=== PATIENT | male | born 1945 | race Caucasian/White ===

== ENCOUNTER 2024-06-30 21:52 | Inpatient (IN) | payer OTHER ==
[~2024-06-30] VITALS: Ht 182.9 cm; Wt 81.6 kg
[2024-06-30 21:55] VITALS: BP_SYST 117; PULSE 87; RESP 18; TEMP 98.2; O2SAT 98
[2024-06-30] MEDS: cefTRIAXone 1 GM IVPB PREMIX 50 ML IV ONE (22:43)
[2024-06-30 23:33] LABS: ALANINE AMINOTRANSFERASE 19 U/L (12-78); ALBUMIN 2.7 g/dL (3.4-4.8); ANION GAP 10 (5-15); ASPARTATE AMINOTRANSFERASE 19 U/L (10-37); CALCIUM 8.8 mg/dL (8.4-11.0); CARBON DIOXIDE 26 mmol/L (23-29); CHLORIDE 98 mmol/L (98-107); CREATININE 1.39 mg/dL (0.55-1.30); GLUCOSE 105 mg/dL (74-106); POTASSIUM 4.2 mmol/L (3.5-5.1); SODIUM SERUM 134 mmol/L (136-145); TOTAL BILIRUBIN 1.1 mg/dL (0.0-1.0); TOTAL PROTEIN, SERUM 6.2 g/dL (6.4-8.3); UREA NITROGEN, BLOOD 28 mg/dL (8-21)
[2024-06-30 23:33] LABS: BILIRUBIN,URINE NEGATIVE (NEGATIVE); BLOOD, URINE 1+ (NEGATIVE); COLOR,URINE YELLOW (YELLOW); GLUCOSE,URINE NEGATIVE (NEGATIVE); KETONES,URINE NEGATIVE (NEGATIVE); LEUKOCYTE ESTERASE ,URINE 3+ (NEGATIVE); NITRITE, URINE NEGATIVE (NEGATIVE); PROTEIN URINE NEGATIVE (NEGATIVE); UROBILINOGEN,URINE 0.2 (0.2-1.0)
[2024-06-30 23:35] LABS: BILIRUBIN,DIRECT 0.3 mg/dL (0.0-0.3)
[2024-06-30 23:46] LABS: CLARITY/URINE CLOUDY (CLEAR)
[2024-06-30 23:47] LABS: BACTERIA,URINE MODERATE /HPF (None Seen); WBC,URINE >100 /HPF (0-3)
[2024-06-30 23:55] LABS: INR 1.1 (0.80-1.20); PROTHROMBIN TIME 11.1 SECS (9.5-12.5)
[2024-07-01] VITALS (8 sets, daily range): BP systolic 102–122; PULSE 63–102; RESP 16–20; TEMP 97.3–98.5; O2SAT 93–98
[2024-07-01 00:01] LABS: BASOPHILS # (AUTO) 0.1 K/uL (0.0-0.2); BASOPHILS % (AUTO) 0.9 % (0.0-2.0); EOSINOPHILS # (AUTO) 0.1 K/uL (0.0-0.4); EOSINOPHILS % (AUTO) 0.8 % (0.0-4.0); HEMATOCRIT 32.2 % (36-54); HEMOGLOBIN 11.2 g/dL (14.0-18.0); LYMPHOCYTES # (AUTO) 1.4 K/uL (1.0-5.5); LYMPHOCYTES % (AUTO) 12.9 % (20.5-51.5); MEAN CORPUSCULAR HEMOGLOBIN 33 pg (27-31); MEAN CORPUSCULAR HGB CONC 35 % (32-36); MEAN CORPUSCULAR VOLUME 93 fL (79.0-98.0); MONOCYTES # (AUTO) 1.1 K/uL (0.0-1.0); MONOCYTES % (AUTO) 10.3 % (1.7-9.3); NEUTROPHILS % (AUTO) 75.1 % (40.0-70.0); RED BLOOD CELL COUNT(AUTO) 3.45 MIL/uL (4.2-6.2); RED CELL DISTRIBUTION WIDTH 17.6 % (9.0-15.0); WHITE BLOOD COUNT (AUTO) 10.6 K/uL (4.8-10.8)
[2024-07-01 00:28] LABS: PLATELET COUNT (AUTO) 289 K/uL (130-430)
[2024-07-01] MEDS ORDERED: GABA-531 PO (04:26)
[2024-07-01] MEDS ORDERED: BISA10SU61 RC (04:26)
[2024-07-01] MEDS ORDERED: LIDP (04:31)
[2024-07-01] MEDS ORDERED: OXYC10TA48 PO (04:32)
[2024-07-01] MEDS ORDERED: TAMS-11 PO (04:32)
[2024-07-01] MEDS ORDERED: ACET-2634 PO (04:32)
[2024-07-01] MEDS ORDERED: SENN-153 PO (04:32)
[2024-07-01] MEDS ORDERED: ONDA4TAB11 PO (04:32)
[2024-07-01] MEDS ORDERED: METH500T PO (04:32)
[2024-07-01] MEDS ORDERED: POLY17PO4 PO (04:32)
[2024-07-01] MEDS ORDERED: OXYC5TAB3 PO (04:32)
[2024-07-01] MEDS ORDERED: MOM PO (04:32)
[2024-07-01] MEDS ORDERED: MIDO2.5T PO (04:32)
[2024-07-01] MEDS ORDERED: CIPROFLOXACIN HCL 500 MG TABLET PO SCH (09:00)
[2024-07-01] MEDS: CIPROFLOXACIN HCL 500 MG TABLET PO SCH (09:48)
[2024-07-01] MEDS: methocarbamoL 500 MG TABLET PO SCH (22:33)
[2024-07-01] MEDS: OXYCODONE/ACETAMINOPHEN 5-325 TABLET PO PRN (22:34)
[2024-07-02 00:28] VITALS: BP_SYST 89; PULSE 69; RESP 12; TEMP 96.6; O2SAT 93
[2024-07-02 07:30] VITALS: BP_SYST 91; PULSE 68; RESP 18; TEMP 97.8; O2SAT 97
[2024-07-02 09:45] VITALS: O2SAT 98
[2024-07-02 09:58] LABS: HEMATOCRIT 33.5 % (36-54); HEMOGLOBIN 11.4 g/dL (14.0-18.0); MEAN CORPUSCULAR HEMOGLOBIN 32 pg (27-31); MEAN CORPUSCULAR HGB CONC 34 % (32-36); MEAN CORPUSCULAR VOLUME 94 fL (79.0-98.0); RED BLOOD CELL COUNT(AUTO) 3.56 MIL/uL (4.2-6.2); RED CELL DISTRIBUTION WIDTH 17.9 % (9.0-15.0)
[2024-07-02 10:17] LABS: ALBUMIN 2.7 g/dL (3.4-4.8); ANION GAP 8 (5-15); CALCIUM 8.9 mg/dL (8.4-11.0); CARBON DIOXIDE 29 mmol/L (23-29); CHLORIDE 100 mmol/L (98-107); CREATININE 1.33 mg/dL (0.55-1.30); GLUCOSE 121 mg/dL (74-106); POTASSIUM 3.9 mmol/L (3.5-5.1); SODIUM SERUM 137 mmol/L (136-145); TOTAL BILIRUBIN 0.9 mg/dL (0.0-1.0); TOTAL PROTEIN, SERUM 6.3 g/dL (6.4-8.3); UREA NITROGEN, BLOOD 19 mg/dL (8-21)
[2024-07-02 10:27] LABS: PLATELET COUNT (AUTO) 277 K/uL (130-430)
[2024-07-02 10:29] LABS: ALANINE AMINOTRANSFERASE 38 U/L (12-78); ASPARTATE AMINOTRANSFERASE 34 U/L (10-37)
[2024-07-02] MEDS: NACL 0.9% 1,000 ML IV SCH (10:30)
[2024-07-02 10:59] LABS: BASOPHILS % (MANUAL) 0 % (0-2); EOSINOPHILS % (MANUAL) 8 % (0-7); LYMPHOCYTES % (MANUAL) 12 % (20-46); MONOCYTES % (MANUAL) 10 % (0-11); PLATELET ESTIMATE ADEQUATE (ADEQUATE)
[2024-07-02 12:50] VITALS: BP_SYST 98; PULSE 104; RESP 18; TEMP 98.1; O2SAT 97
[2024-07-02] MEDS: cefTRIAXone 1 GM in D5W 50 ML IV SCH (13:53)
[2024-07-02 16:30] VITALS: BP_SYST 110; PULSE 68; RESP 16; TEMP 98.6; O2SAT 97
[2024-07-02 20:30] VITALS: BP_SYST 102; PULSE 93; RESP 20; TEMP 97.2; O2SAT 97
[2024-07-03] VITALS: BP_SYST 117; PULSE 94; RESP 18; TEMP 98.4; O2SAT 99
[2024-07-03 08:30] VITALS: BP_SYST 103; PULSE 69; RESP 16; TEMP 97.3; O2SAT 94
[2024-07-03] MEDS: ENOXAPARIN SODIUM 40 MG/0.4 ML SYRINGE SUBCUT SCH (08:54)
[2024-07-03 08:56] LABS: HEMATOCRIT 34.9 % (36-54); HEMOGLOBIN 11.9 g/dL (14.0-18.0); MEAN CORPUSCULAR HEMOGLOBIN 32 pg (27-31); MEAN CORPUSCULAR HGB CONC 34 % (32-36); MEAN CORPUSCULAR VOLUME 95 fL (79.0-98.0); RED BLOOD CELL COUNT(AUTO) 3.69 MIL/uL (4.2-6.2); RED CELL DISTRIBUTION WIDTH 17.6 % (9.0-15.0)
[2024-07-03 09:10] LABS: ANION GAP 6 (5-15); CALCIUM 8.9 mg/dL (8.4-11.0); CARBON DIOXIDE 29 mmol/L (23-29); CHLORIDE 105 mmol/L (98-107); CREATININE 1.16 mg/dL (0.55-1.30); GLUCOSE 96 mg/dL (74-106); SODIUM SERUM 140 mmol/L (136-145); UREA NITROGEN, BLOOD 16 mg/dL (8-21)
[2024-07-03 11:09] VITALS: BP_SYST 111; PULSE 66; RESP 16; TEMP 97.6; O2SAT 96
[2024-07-03 11:29] LABS: PLATELET COUNT (AUTO) 281 K/uL (130-430)
[2024-07-03 11:53] LABS: WHITE BLOOD COUNT (AUTO) 5.4 K/uL (4.8-10.8)
[2024-07-03 11:54] LABS: ANISOCYTOSIS 1+; BAND % (MANUAL) 2 % (0-6); BASOPHILS % (MANUAL) 0 % (0-2); EOSINOPHILS % (MANUAL) 13 % (0-7); LYMPHOCYTES % (MANUAL) 8 % (20-46); MONOCYTES % (MANUAL) 10 % (0-11); PLATELET ESTIMATE ADEQUATE (ADEQUATE)
[2024-07-03] MEDS ORDERED: CIPR500T5 PO (15:58)
[2024-07-03] MEDS ORDERED: ACETAMINOPHEN 500 MG TABLET PO SCH (16:00)
[2024-07-03] MEDS ORDERED: methocarbamoL 500 MG TABLET PO SCH (17:00)
== END 2024-07-03 16:56 | DRG 871 ==
LOC: SED 21:52 → SMU 07-01 01:14
PROVIDERS: ADMIT Family Medicine; ATTEND Family Medicine
DX: A41.9 Sepsis, unspecified organism (principal); G93.41 Metabolic encephalopathy; N17.9 Acute kidney failure, unspecified; N39.0 Urinary tract infection, site not specified; Z79.899 Other long term (current) drug therapy
CPT/HCPCS: 36415; 70450-TC; 71045; 76770; 80048; 80053; 80076; 81000; 81001; 81015; 82948; 83605; 84484; 85007; 85025; 85027; 85379; 85610; 85730; 87040; 87081; 87086; 87186; 93005; 96365; 97110-GP; 97112-GO; 97112-GP; 97116-GP; 97530-GO; 97530-GP; 97760-GP; 99285; J0696; J1650; J7060